=== PATIENT | female | born 1995 | race Caucasian/White ===

== ENCOUNTER → 2019-12-05 09:19 | Outpatient (CLI) | payer OTHER, SELFPAY ==
--- NOTE | ~2019-12-05 | US_ITS ---
EXAMINATION: US OB /maternal detail DATE: 12/05/2019 10:05 INDICATION: Second trimester anatomic survey TECHNIQUE: Real-time ultrasound of the pelvis was performed. COMPARISON: None. FINDINGS: There is a single living fetus in vertex presentation. The placenta is anterior and 6.2 cm from the i nternal cervical os. heart rate is 151 beats per minute (bpm). cardiac activity and feta l movement are noted. The amniotic fluid index is subjectively normal. The following anatomy was identified as normal: 4 chamber heart 3 vessel cord cord insertion kidneys urinary bladder stomach spine diaphragm ventricles cisterna magna cerebellum The following biometric data were obtained: Biparietal diameter (BPD): 4.9 cm; head circumference (HC): 18.4 cm; abdominal circumference (AC): 14 .9 cm; femur length (FL): 3.1 cm. These measurements are concordant. Estimated weight is 337 g +/- 50 g, which correlates with the 56th percentile when 04/23/2020 is used as estimated date of delivery. As single measurements, these parameters are each equal to the following estimated gestational ages w ith ranges of +/- 2 standard deviations: BPD: 21 weeks 0 days ( 19 weeks 2 days - 22 weeks 5 days). HC: 20 weeks 6 days ( 19 weeks 2 days - 22 weeks 2 days). AC: 20 weeks 2 days ( 18 weeks 1 days - 22 weeks 2 days). FL: 19 weeks 6 days ( 18 weeks 1 days - 21 weeks 5 days). estimated gestational age based solely on measurements from this exam is 20 weeks 4 days +/- 1 weeks 3 days. IMPRESSION: 1. Single living fetus in vertex presentation. 2. Estimated weight is 337 g +/- 50 g, which correlates with the 56th percentile when 04/23/2020 is used as estimated date of delivery. Reviewed, dictated and finalized at location A. ET GLUER IMPRESSION: 1. Single living fetus in vertex presentation. 2. Estimated weight is 337 g +/- 50 g, which correlates with the 56th per centile when 04/23/2020 is used as estimated date of delivery.
== END ==
PROVIDERS: Visit Provider Obstetrics & Gynecology
DX: Z36.9 Encounter for antenatal screening, unspecified (principal); Z3A.20 20 weeks gestation of pregnancy
CPT/HCPCS: 76805

== ENCOUNTER → 2022-01-26 10:10 | Outpatient (CLI) | payer BC, SELFPAY ==
--- NOTE | ~2022-01-26 | US_ITS ---
EXAMINATION: US OB follow up DATE: 01/26/2022 10:50 INDICATION: Obesity complicating during early third trimester. Assess growth. TECHNIQUE: Real-time ultrasound of the pelvis was performed. The interpreting radiologist was not pre sent for the study. COMPARISON: 12/05/2019 FINDINGS: There is a single living fetus in breech presentation. The placenta is posterior with caudal margin 4.7 cm from the internal cervical os. heart rate is 145 beats per minute (bpm). The amniotic fl uid index is 20.4 cm, which is normal (5th%-95%: 9.5-22.6 cm at 27 weeks estimated gestational age). The following biometric data were obtained: BPD: 6.7 cm -> 27 weeks 1 days Head circumference: 24.9 cm -> 27 weeks 0 days Abdominal circumference: 22.8 cm -> 27 weeks 1 days Femur length: 5.3 cm -> 28 weeks 2 days These measurements are concordant. Head circumference to abdominal circumference ratio: 1.09 (normal range 1.04-1.22). At request of the ordering physician the lips and nose were imaged and appear normal. Estimated weight: 1094 g (+/-) 164 g or 2 lbs. 7 oz. (+/-) 6 oz. IMPRESSION: 1. Single living fetus in breech presentation with heart rate of 145 bpm. 2. Normal amniotic fluid index of 20.4 cm. 3. Estimated weight is 32nd percentile by Hadlock criteria when 04/22/2022 is used as the estimat ed date of delivery ([place]). Please correlate with clinical information or earlier ultrasounds for most accurate [place]. 4. Normal coronal view of the lips and nose. Reviewed, dictated and finalized at location B. IMPRESSION: 1. Single living fetus in breech presentation with heart rate of 145 bpm. 2. Normal amniotic fluid index of 20.4 cm. 3. Estimated weight is 32nd percentile by Hadlock criteria when 04/22/2022 is used as the estimated date of delivery ([place]). Please correlate with clinical information or earlier ultrasounds for most accurate [place]. 4. Normal coronal view of the lips and nose.
== END ==
PROVIDERS: Visit Provider Obstetrics & Gynecology
DX: O99.212 Obesity complicating pregnancy, second trimester (principal); Z3A.27 27 weeks gestation of pregnancy
CPT/HCPCS: 76816